=== PATIENT | male | born 1950 | race Caucasian/White ===

== ENCOUNTER → 2016-03-25 | Outpatient (CLI) | payer MEDICARE, BC, OTHER ==
[~2016-03-25] VITALS: Ht 172.7 cm; Wt 97.0 kg
[~2016-03-25] MED LIST: /PRAV20TA PO; ASPI325T28 PO; LIDOCAINE 2% INJ 100 MG/5 ML SDV (FOR ANES.) As Ordered ONE; NS 1,000 ML IV SCH; OMEP40CA2 PO; PERCOCET PO; PROPOFOL 200 MG/20 ML VIAL As Ordered ONE; aspirin OR
--- NOTE | 2016-03-25 13:17 | ROOR ---
Patient Name: Nikunj Gregory Procedure Date: 03/25/2016 12:49 PM Date of : 1950 Age: 65 Room: [facility] Gender: Male Note Status: Finalized Procedure: Colonoscopy to Cecum + Biopsy Polypectomy Indications: High risk colon cancer surveillance: Personal history of colonic polyps, High risk colon cancer surveillance: Personal history of adenoma with villous component Providers: Chase Garrison MD Referring MD: NAYE JOHNSON JR, MD Requesting Provider: Medicines: Monitored Anesthesia Care Complications: No immediate complications. Procedure: Pre-Anesthesia Assessment: - The heart rate, respiratory rate, oxygen saturations, blood pressure, adequacy of pulmonary ventilation, and response to care were monitored throughout the procedure. The Colonoscope was introduced through the anus and advanced to the cecum, identified by appendiceal orifice and ileocecal valve. The colonoscopy was performed without difficulty. The patient tolerated the procedure well. The quality of the bowel preparation was excellent. Findings: The perianal and digital rectal examinations were normal. Non-bleeding internal hemorrhoids were found during retroflexion. The hemorrhoids were small and Grade I (internal hemorrhoids that do not prolapse). Scattered small-mouthed diverticula were found in the recto-sigmoid colon, sigmoid colon and descending colon. Two sessile polyps were found at 60 cm proximal to the anus. The polyps were small in size. These polyps were removed with a cold biopsy forceps. Resection and retrieval were complete. The exam was otherwise without abnormality on direct and retroflexion views. Impression: - Non-bleeding internal hemorrhoids. - Diverticulosis in the recto-sigmoid colon, in the sigmoid colon and in the descending colon. - Two small polyps at 60 cm proximal to the anus, removed with a cold biopsy forceps. Resected and retrieved. - The examination was otherwise normal on direct and retroflexion views. - The exam was otherwise normal to the cecum. Recommendation: - Patient has a contact number available for emergencies. The signs and symptoms of potential delayed complications were discussed with the patient. Return to normal activities tomorrow. Written discharge instructions were provided to the patient. - High fiber diet. - Discharge patient to home. - Continue present medications. - Await pathology results. - Telephone GI clinic for pathology results in 1 week. - Repeat colonoscopy in 5 years for surveillance based on pathology results. - Return to referring physician. - The findings and recommendations were discussed with the patient's family. Chase Garrison MD Chase Garrison MD 03/25/2016 1:17:44 PM This report has been signed electronically. Number of Addenda: 0 Note Initiated On: 03/25/2016 12:49 PM Estimated Blood Loss: Estimated blood loss: none.
[2016-03-25 14:00] VITALS: BP 114/4
== END ==
LOC: M OPP 11:10
PROVIDERS: ATTEND Internal Medicine Gastroenterology
DX: Z09 Encounter for follow-up examination after completed treatment for conditions other than malignant neoplasm (principal); D12.4 Benign neoplasm of descending colon; K57.30 Diverticulosis of large intestine without perforation or abscess without bleeding; K64.0 First degree hemorrhoids; Z86.010 Personal history of colon polyps; E78.5 Hyperlipidemia, unspecified; E66.9 Obesity, unspecified; E07.9 Disorder of thyroid, unspecified; K21.9 Gastro-esophageal reflux disease without esophagitis; Z80.3 Family history of malignant neoplasm of breast; Z83.71 Family history of colonic polyps; Z85.118 Personal history of other malignant neoplasm of bronchus and lung; Z87.891 Personal history of nicotine dependence; Z88.1 Allergy status to other antibiotic agents; Z91.040 Latex allergy status; Z79.899 Other long term (current) drug therapy

== ENCOUNTER 2017-02-12 08:54 | Emergency (ER) | payer MEDICARE, BC, OTHER ==
[2017-02-12] MEDS: MORPHINE 4 MG/ML 1ML SYRINGE IV ×2 (09:20→09:46)
[2017-02-12] MEDS: ONDANSETRON 4MG/2ML VIAL (J2405) IV (09:20)
[2017-02-12 09:29] LABS: MEAN CORPUSCULAR HGB CONC 30.6 g/dl (32.0-36.5); MEAN CORPUSCULAR VOLUME 78.6 fl (80.0-96.0); PLATELET COUNT, AUTOMATED 259 10^3/uL (150-450); RED CELL DISTRIBUTION WIDTH 18.6 % (11.5-14.5); WHITE BLOOD COUNT 8.6 10^3/uL (4.0-10.0)
[2017-02-12 09:51] LABS: ANION GAP 9 MEQ/L (8-16); BLOOD UREA NITROGEN 33 MG/DL (7-18); CARBON DIOXIDE LEVEL 27 MEQ/L (21-32); CHLORIDE LEVEL 104 MEQ/L (98-107); CREATININE FOR GFR 1.21 MG/DL (0.70-1.30); GLOMERULAR FILTRATION RATE > 60.0 (>49); GLUCOSE, FASTING 213 MG/DL (80-110); SODIUM LEVEL 140 MEQ/L (136-145)
[2017-02-12] MEDS: NS 1,000 ML IV (10:02)
[2017-02-12] MEDS: PROPOFOL 200 MG/20 ML VIAL IV (10:09)
== END 2017-02-12 13:53 | disposition home or self-care (01) ==
LOC: M ED 08:54
DX: S82.451A Displaced comminuted fracture of shaft of right fibula, initial encounter for closed fracture (principal); S82.51XA Displaced fracture of medial malleolus of right tibia, initial encounter for closed fracture; S93.04XA Dislocation of right ankle joint, initial encounter; W00.0XXA Fall on same level due to ice and snow, initial encounter; Y92.093 Driveway of other non-institutional residence as the place of occurrence of the external cause; Y93.9 Activity, unspecified; R00.0 Tachycardia, unspecified; R94.31 Abnormal electrocardiogram [ECG] [EKG]; I51.7 Cardiomegaly; Z87.81 Personal history of (healed) traumatic fracture; Z79.82 Long term (current) use of aspirin; Z79.899 Other long term (current) drug therapy; J30.81 Allergic rhinitis due to animal (cat) (dog) hair and dander; Z88.1 Allergy status to other antibiotic agents; Z91.040 Latex allergy status
CPT/HCPCS: J2405

== ENCOUNTER 2017-02-18 08:02 | Day surgery (SDC) | payer MEDICARE, BC, OTHER ==
[2017-02-18] MEDS: LR 1,000 ML IV ×6 (09:15→13:45)
[2017-02-18] MEDS ORDERED: fentaNYL 100 MCG/2 ML INJECTION (J3010) As Ordered ×4 (10:02→12:39)
[2017-02-18] MEDS ORDERED: MIDAZOLAM INJ 2 MG/2 ML VIAL (J2250) As Ordered ×4 (10:02→12:39)
[2017-02-18] MEDS: fentaNYL 100 MCG/2 ML INJECTION (J3010) IV ×6 (10:16→13:46)
[2017-02-18] MEDS: MIDAZOLAM INJ 2 MG/2 ML VIAL (J2250) IV ×2 (10:16)
[2017-02-18] MEDS ORDERED: LIDOCAINE 2% INJ 100 MG/5 ML SDV (FOR ANES.) As Ordered ×2 (12:39)
[2017-02-18] MEDS ORDERED: PHENYLephrine HCL 500 MCG/5 ML (100MCG/ML) SYRINGE (J2370) As Ordered ×2 (12:39)
[2017-02-18] MEDS ORDERED: dexameTHASONE 4 MG/ML 1ML VIAL (J1100) As Ordered ×2 (12:39)
[2017-02-18] MEDS ORDERED: ROCURONIUM BROMIDE 50 MG/5 ML VIAL As Ordered ×2 (12:39)
[2017-02-18] MEDS ORDERED: PROPOFOL 200 MG/20 ML VIAL As Ordered ×2 (12:39)
[2017-02-18] MEDS ORDERED: ePHEDrine SULFATE 25 MG/5 ML(5MG/ML) SYRINGE As Ordered ×2 (12:39)
[2017-02-18] MEDS ORDERED: ONDANSETRON 4MG/2ML VIAL (J2405) As Ordered ×2 (12:40)
[2017-02-18] MEDS ORDERED: GLYCOPYRROLATE INJ 0.2 MG/ML 2 ML VIAL As Ordered ×2 (12:41)
[2017-02-18] MEDS ORDERED: ALBUTEROL SULFATE 2.5 MG/0.5 ML INH NEB SOLN As Ordered ×2 (13:29)
[2017-02-18] MEDS: ALBUTEROL SULFATE 2.5 MG/0.5 ML INH NEB SOLN INH ×2 (13:33)
[2017-02-18] MEDS ORDERED: ONDANSETRON 4MG/2ML VIAL (J2405) IV ×2 (13:45)
[2017-02-18] MEDS ORDERED: MORPHINE 2 MG/ML 1ML SYRINGE IV ×2 (14:00)
[2017-02-18] MEDS ORDERED: oxyCODONE 5MG TAB PO ×2 (14:00)
[2017-02-18] MEDS ORDERED: FUROSEMIDE 20 MG/2 ML VIAL (J1940) As Ordered ×2 (14:08)
[2017-02-18] MEDS: FUROSEMIDE 20 MG/2 ML VIAL (J1940) IV ×2 (14:10)
[2017-02-18] MEDS ORDERED: PERCOCET 5MG/325MG TAB PO ×2 (14:15)
[2017-02-18] MEDS: ACETAMINOPHEN 500 MG TAB PO ×2 (18:32)
[2017-02-18] MEDS: DOCUSATE SODIUM 100 MG CAP PO ×2 (20:34)
[2017-02-18] MEDS: SENNA 8.6 MG TAB (SENOKOT) PO ×2 (20:34)
[2017-02-18] MEDS: ASPIRIN 81 MG CHEW TABLET PO ×2 (20:34)
[2017-02-18] MEDS: oxyCODONE 5MG TAB PO ×2 (22:01)
[2017-02-19] MEDS: CALCIUM CARBONATE 500 MG CHEW U/D PO ×4 (00:30→11:18)
[2017-02-19] MEDS: ACETAMINOPHEN 500 MG TAB PO ×6 (00:30→16:18)
[2017-02-19] MEDS: LR 1,000 ML IV ×2 (00:52)
[2017-02-19] MEDS: oxyCODONE 5MG TAB PO ×10 (04:03→20:43)
[2017-02-19] MEDS ORDERED: CEPACOL LOZENGE PO ×2 (08:30)
[2017-02-19] MEDS: VITAMIN D 1,000 INTERNATIONAL UNITS TABLET PO ×2 (08:37)
[2017-02-19] MEDS: DOCUSATE SODIUM 100 MG CAP PO ×4 (08:37→20:42)
[2017-02-19] MEDS: OMEPRAZOLE 20 MG CAP PO ×2 (08:38)
[2017-02-19] MEDS: ALBUTEROL 90 MCG/ACT 8GM HFA INHALER INH ×2 (19:48)
[2017-02-19] MEDS: SENNA 8.6 MG TAB (SENOKOT) PO ×2 (20:42)
[2017-02-19] MEDS: ASPIRIN 81 MG CHEW TABLET PO ×2 (20:42)
[2017-02-19] MEDS: PRAVASTATIN 20 MG TAB PO ×2 (20:42)
[2017-02-20] MEDS: ACETAMINOPHEN 500 MG TAB PO ×6 (00:10→16:20)
[2017-02-20] MEDS: oxyCODONE 5MG TAB PO ×8 (00:47→13:29)
[2017-02-20] MEDS: VITAMIN D 1,000 INTERNATIONAL UNITS TABLET PO ×2 (08:05)
[2017-02-20] MEDS: DOCUSATE SODIUM 100 MG CAP PO ×2 (08:05)
[2017-02-20] MEDS: OMEPRAZOLE 20 MG CAP PO ×2 (08:05)
[2017-02-20] MEDS: FLEET ENEMA PR ×2 (08:38)
[2017-02-20] MEDS: ASPIRIN 325 MG TAB PO ×2 (11:11)
[2017-02-20] MEDS: CALCIUM CARBONATE 500 MG CHEW U/D PO ×2 (14:21)
== END 2017-02-20 17:00 | disposition home or self-care (01) ==
LOC: M SDC 08:02 → M MS5PR 17:05
DX: S82.851A Displaced trimalleolar fracture of right lower leg, initial encounter for closed fracture (principal); W00.9XXA Unspecified fall due to ice and snow, initial encounter; Y92.89 Other specified places as the place of occurrence of the external cause; Y93.89 Activity, other specified; Y99.8 Other external cause status; E21.3 Hyperparathyroidism, unspecified; K21.9 Gastro-esophageal reflux disease without esophagitis; F32.9 Major depressive disorder, single episode, unspecified; Z86.73 Personal history of transient ischemic attack (TIA), and cerebral infarction without residual deficits; J44.9 Chronic obstructive pulmonary disease, unspecified; E78.00 Pure hypercholesterolemia, unspecified; M93.90 Osteochondropathy, unspecified of unspecified site; Z85.118 Personal history of other malignant neoplasm of bronchus and lung; Z90.2 Acquired absence of lung [part of]; Z87.891 Personal history of nicotine dependence; Z79.899 Other long term (current) drug therapy; Z79.82 Long term (current) use of aspirin; Z91.040 Latex allergy status; Z88.1 Allergy status to other antibiotic agents; J30.81 Allergic rhinitis due to animal (cat) (dog) hair and dander; E66.09 Other obesity due to excess calories; Z68.33 Body mass index [BMI] 33.0-33.9, adult
CPT/HCPCS: 27823

== ENCOUNTER → 2020-07-18 | Outpatient (CLI) | payer MEDICARE, BC, OTHER ==
[~2020-07-18] MED LIST changes: -/PRAV20TA PO; +ADVI200C5 PO; +ASPI-255 PO; +ASPI-527 PO; -ASPI325T28 PO; +ISOVUE-370 76% 100ML VIAL As Ordered ONE; -LIDOCAINE 2% INJ 100 MG/5 ML SDV (FOR ANES.) As Ordered ONE; -NS 1,000 ML IV SCH; +PERC5TAB12 PO; +PRAV1TAB39 PO; +PROAAER10 INH; -PROPOFOL 200 MG/20 ML VIAL As Ordered ONE
--- NOTE | 2020-07-18 15:47 | REP ---
INDICATION: HX LT LUNG CA COMPARISON: 06/14/2013 TECHNIQUE: Axial contrast enhanced images from the thoracic inlet to the upper abdomen with coronal and sagittal reformations using 75 ml Isovue 370 intravenous contrast material. This CT examination was performed using the following dose reduction techniques: Automated exposure control, adjustment of mA and/or kv according to the patient's size, and use of iterative reconstruction technique. FINDINGS: Postsurgical changes involving the left hemithorax consistent with prior partial lobectomy noted with minimal scattered scarring as well as obvious volume loss and old healed left rib fractures. The bilateral aerated lung gaston demonstrate minimal chronic age-related changes. No acute consolidation, suspicious nodule or mass. No pleural effusion. No pneumothorax. Tracheobronchial tree is patent. Mediastinum demonstrates atherosclerotic changes to the thoracic aorta without aortic aneurysm or dissection. No cardiomegaly or pericardial effusion. No adenopathy. Moderate hiatal hernia noted. IMPRESSION: Chronic postsurgical changes involving the left hemithorax. No acute mediastinal or pleuroparenchymal process identified. No evidence for recurrence or metastatic disease. <Electronically signed by Hong Fajardo > 07/18/20 [id number]
== END ==
LOC: M RAD 14:29
PROVIDERS: ATTEND Internal Medicine
DX: Z85.118 Personal history of other malignant neoplasm of bronchus and lung (principal)
CPT/HCPCS: 71260; Q9967

== ENCOUNTER → 2021-01-09 | Outpatient (CLI) | payer MEDICARE, BC, OTHER ==
[~2021-01-09] MED LIST changes: -ISOVUE-370 76% 100ML VIAL As Ordered ONE
--- NOTE | 2021-01-09 14:12 | REP ---
INDICATION: COPD, EXACERBATION COMPARISON: None TECHNIQUE: PA and lateral. FINDINGS: Left-sided pleuroparenchymal changes likely related to old trauma and surgery as multiple nonacute healed rib fractures are identified as well as left hilar surgical clips. The bilateral aerated lung gaston are well aerated and without obvious acute consolidation, definite effusion or pneumothorax. Hiatal hernia noted. Cardiac silhouette normal. IMPRESSION: Presumed chronic posttraumatic and postsurgical pleuroparenchymal changes involving the left hemithorax. <Electronically signed by Hong Fajardo > 01/09/21 [id number]
== END ==
LOC: M WUC 13:57
PROVIDERS: ATTEND Internal Medicine
DX: J44.1 Chronic obstructive pulmonary disease with (acute) exacerbation (principal)

== ENCOUNTER → 2021-08-21 | Outpatient (CLI) | payer MEDICARE, BC, OTHER ==
[~2021-08-21] MED LIST changes: +ISOVUE-370 76% 100ML VIAL As Ordered ONE
== END ==
LOC: M RAD 14:46
PROVIDERS: ATTEND Internal Medicine
DX: C34.12 Malignant neoplasm of upper lobe, left bronchus or lung (principal); K44.9 Diaphragmatic hernia without obstruction or gangrene; K76.0 Fatty (change of) liver, not elsewhere classified; N28.1 Cyst of kidney, acquired
CPT/HCPCS: 71260; Q9967

== ENCOUNTER → 2021-09-09 | Outpatient (CLI) | payer MEDICARE, BC, OTHER ==
[~2021-09-09] MED LIST changes: +BUDE10.2 INH; -ISOVUE-370 76% 100ML VIAL As Ordered ONE; +METF750T36 PO; +OMEP40CA5 PO; +PRAV40TA2 PO
== END ==
LOC: M LABSMTC 09:43
PROVIDERS: ATTEND Anesthesiology
DX: Z01.812 Encounter for preprocedural laboratory examination (principal); Z11.52 Encounter for screening for COVID-19

== ENCOUNTER 2021-09-12 07:56 | Day surgery (SDC) | payer MEDICARE, BC, OTHER ==
[~2021-09-12] VITALS: Ht 177.8 cm; Wt 90.8 kg
[~2021-09-12 07:56] MED LIST changes: +LIDOCAINE 2% 100MG/5ML SDV (FOR ANES.) As Ordered ONE; +NS 1,000 ML IV ONE; +propofoL 200 MG/20 ML VIAL As Ordered ONE
[2021-09-12 09:50] VITALS: BP 128/79
== END 2021-09-12 10:05 | disposition home or self-care (01) ==
LOC: M OPP 07:56
PROVIDERS: ATTEND Internal Medicine Gastroenterology
DX: Z12.11 Encounter for screening for malignant neoplasm of colon (principal); Z86.010 Personal history of colon polyps; K63.5 Polyp of colon; K64.0 First degree hemorrhoids; E11.9 Type 2 diabetes mellitus without complications; Z86.73 Personal history of transient ischemic attack (TIA), and cerebral infarction without residual deficits; J44.9 Chronic obstructive pulmonary disease, unspecified; K21.9 Gastro-esophageal reflux disease without esophagitis; Z83.71 Family history of colonic polyps; Z80.3 Family history of malignant neoplasm of breast; Z85.118 Personal history of other malignant neoplasm of bronchus and lung; Z87.891 Personal history of nicotine dependence; Z79.02 Long term (current) use of antithrombotics/antiplatelets; Z79.51 Long term (current) use of inhaled steroids; Z79.82 Long term (current) use of aspirin; Z79.84 Long term (current) use of oral hypoglycemic drugs; Z79.899 Other long term (current) drug therapy; Z88.0 Allergy status to penicillin; Z91.040 Latex allergy status

== ENCOUNTER → 2022-03-18 | Outpatient (CLI) | payer MEDICARE, BC, OTHER ==
[~2022-03-18] MED LIST changes: -LIDOCAINE 2% 100MG/5ML SDV (FOR ANES.) As Ordered ONE; -NS 1,000 ML IV ONE; -propofoL 200 MG/20 ML VIAL As Ordered ONE
== END ==
LOC: M WUC 15:56
PROVIDERS: ATTEND Internal Medicine
DX: R06.09 Other forms of dyspnea (principal); R05.9 Cough, unspecified

== ENCOUNTER → 2022-11-19 | Outpatient (CLI) | payer MEDICARE, BC, OTHER ==
[~2022-11-19] MED LIST changes: +ISOVUE-370 76% 100ML VIAL ONE
== END ==
LOC: M PLAIMG 07:43
PROVIDERS: ATTEND Internal Medicine
DX: C34.12 Malignant neoplasm of upper lobe, left bronchus or lung (principal)
CPT/HCPCS: 71260; Q9967

== ENCOUNTER → 2024-04-21 | Outpatient (CLI) | payer MEDICARE, BC, OTHER | LOC: M PLAIMG 14:10 | PROVIDERS: ATTEND Internal Medicine | DX: Z85.118 Personal history of other malignant neoplasm of bronchus and lung (principal) | CPT/HCPCS: 71260; Q9967 ==